=== PATIENT | female | born 1995 | race Caucasian/White ===

== ENCOUNTER 2024-03-16 20:58 | Emergency (ER) | payer SELFPAY ==
[2024-03-16 21:02] VITALS: BP 103/54; PULSE 110; RESP 20; TEMP 36.6; O2SAT 98; BMI 23.4
[2024-03-16 21:26] LABS: MANUAL DIFF FLAG NO
[2024-03-16 21:28] LABS: Basophils Percent Auto 0.2 % (0-2); Eosinophils Absolute Auto 0.3 X10*3/uL (0.0-0.4); Eosinophils Percent Auto 1.6 % (0-4); Hematocrit 34.7 % (37.0-47.0); Hemoglobin 11.7 g/dl (12.0-16.0); Imm Gran Abs Auto 0.16 X10*3/uL (0.00-0.03); Lymphocytes Absolute Auto 3.4 X10*3/uL (1.2-4.9); Lymphocytes Percent Auto 20.7 % (20-40); Mean Corpuscular HGB Conc 33.7 g/dl (31.0-35.0); Mean Corpuscular Hemoglobin 30.9 pg (27.0-33.0); Mean Corpuscular Volume 91.6 fL (80.0-98.0); Mean Platelet Volume 9.7 fL (9.4-12.3); Monocytes Absolute Auto 1.5 X10*3/uL (0.1-1.2); Monocytes Percent Auto 9.1 % (2-11); Neutrophils Absolute Auto 10.9 x10*3/uL (2.0-8.3); Neutrophils Percent Auto 67.4 % (45-73); Platelet Count 313 X10*3/uL (160-400); Red Blood Count 3.79 X10*6/uL (4.20-5.50); Red Cell Distribution Width 12.8 % (11.0-16.0); White Blood Count 16.2 X10*3/uL (4.8-10.8)
[2024-03-16 21:33] VITALS: BP 99/63; PULSE 112
[2024-03-16] MEDS: EPINEPHrine 1 MG/ML VIAL 0.3 MG IM (21:33)
[2024-03-16] MEDS: diphenhydrAMINE HCL 50 MG/ML VIAL IVPUSH (21:33)
[2024-03-16] MEDS: Famotidine/PF 20 MG/2 ML VIAL IVPUSH (21:33)
[2024-03-16] MEDS: methylPREDNISolone Sod Succ 125 MG/2 ML VIAL IVPUSH (21:33)
--- NOTE | 2024-03-16 21:36 | ED_ITS ---
HPI - Allergic Reaction General Chief complaint: Allergic Reaction Stated complaint: allergic reaction Time Seen by Provider: 03/16/24 21:14 History of Present Illness HPI narrative: Patient is a 29-year-old female ate Plantei for the 1st time. Noted faint shows swelling around the lips. There is no gross change in voice. Able to tolerate saliva. Patient came into the emergency department immediately. Not on blood pressure medication. No other changes in diet or environment. Patient from home. Related Data Previous Rx's ?Medication ?Instructions ?Recorded diphenhydramine HCl 25 mg capsule 25 mg PO Q8H 5 days #15 caps 03/17/24 (Benadryl) epinephrine 0.3 mg/0.3 mL 0.3 mg (0.3 mL) IM ONCE PRN 03/17/24 injection, auto-injector (EpiPen) extreme reaction #1 ea famotidine 20 mg tablet (Pepcid) 20 mg PO BID 5 days #10 tabs 03/17/24 prednisone 20 mg tablet 40 mg (2 x 20 mg) PO DAILY #10 tabs 03/17/24 Allergies Allergy/AdvReac Type Severity Reaction Status Date / Time No Known Allergies Allergy Verified 03/16/24 21:06 Review of Systems 2 Review of Systems: Positive swelling to the face Yes all other systems are reviewed and are negative PMFSH Past Medical History Attestation statement: The following information was validated with the patient. Social History Social History Smoked in Last 30 Days: No Use of substances other than those prescribed or required for medical reasons: No Advance Directives: No Advance Directives Information Provided: No Do you have a plan to hurt others: No Plan Physical Exam ED Vital Signs: Vital Signs - 24 hr 03/16/24 21:02 03/16/24 21:33 03/16/24 22:00 Temperature 98 F Pulse Rate 110 H 112 H 98 Respiratory Rate 20 18 Blood Pressure 103/54 L 99/63 115/59 L Pulse Oximetry 98 99 Oxygen Delivery Method Room Air Room Air 03/17/24 00:24 Temperature 98.6 F Pulse Rate 107 H Respiratory Rate 18 Blood Pressure 93/72 Pulse Oximetry 94 Oxygen Delivery Method Room Air BMI result Body Mass Index 23.4 Appearance: Alert. Oriented X3. No acute distress. Eyes: Pupils equal, round and reactive to light. ENT: Pharynx normal. Significant swelling to the upper and lower lip. There is no erythema posteriorly. Tongue is soft nonenlarged. Floor of the mouth is soft nontender Neck: Normal inspection. Neck supple. No lymph nodes noted. No crepitus CVS: Normal heart rate and rhythm. Pulses normal. Normal S1 and S2 Respiratory: No respiratory distress. Breath sounds normal. No Wheezing. No rales Abdomen: Soft and nontender. No rigidity. No distention. good BS x4 Skin: Skin warm and dry. Normal skin color. Normal skin turgor. Extremities: No lower extremity edema. Neurovascular intact to all extremities. No Lacerations. No Rash Neuro: Oriented X 3. No motor deficit. No sensory deficit. Moving all extermities. No slurred speech Medications Administered Discontinued Medications Generic Name Dose Route Start Last Admin Trade Name Freq PRN Reason Stop Dose Admin Diphenhydramine HCl 50 mg 03/16/24 21:26 03/16/24 21:33 Diphenhydramine Hcl 50 Mg/Ml Vial IVPUSH 03/16/24 21:27 50 mg ONCE ONE Administration Epinephrine 0.3 mg 03/16/24 21:26 03/16/24 21:33 Epinephrine 1 Mg/Ml Vial IM 03/16/24 21:27 0.3 mg STAT STA Administration Famotidine 20 mg 03/16/24 21:26 03/16/24 21:33 Famotidine/Pf 20 Mg/2 Ml Vial IVPUSH 03/16/24 21:27 20 mg ONCE ONE Administration Sodium Chloride 1,000 mls @ 999 mls/hr 03/16/24 21:30 03/16/24 21:39 Ns IV 03/16/24 22:30 999 mls/hr .Q1H1M JIM Administration Methylprednisolone Sodium Succinate 125 mg 03/16/24 21:26 03/16/24 21:33 Methylprednisolone Sod Succ 125 Mg/2 Ml Vial IVPUSH 03/16/24 21:27 125 mg ONCE ONE Administration Medical Decision Making Medical Decision Making MDM Narrative: Extensive swelling to the upper and lower lip. Not on JACQUELYN inhibitors. Given steroid, Benadryl, epinephrine, Pepcid monitor in the emergency department very closely. Never had any changes in voice. Never had any difficulty breathing. Patient's symptom improved over 2 hours. Swelling is down. Question if it is secondary to Plantei. Will discharge patient home. Close follow-up on an outpatient basis. Differential Diagnosis Differential Diagnoses: The differential diagnosis associated with the presentation includes Anaphylaxis, angioedema Admission/Observation Consideration of admission/observation: Escalation of care including admission/observation considered Lab Data MDM Lab Attestation statement: I reviewed the patient's lab results. 03/16/24 21:22 03/16/24 21:22 Labs: Lab Results 03/16/24 03/16/24 03/16/24 Range/Units 21:22 21:36 23:27 WBC 16.2 H (4.8-10.8) X10*3/uL RBC 3.79 L (4.20-5.50) X10*6/uL Hgb 11.7 L (12.0-16.0) g/dl Hct 34.7 L (37.0-47.0) % MCV 91.6 (80.0-98.0) fL MCH 30.9 (27.0-33.0) pg MCHC 33.7 (31.0-35.0) g/dl RDW 12.8 (11.0-16.0) % Plt Count 313 (160-400) X10*3/uL MPV 9.7 (9.4-12.3) fL Immature Gran % (Auto) 1.0 H (0.0-0.4) % Neut % (Auto) 67.4 (45-73) % Lymph % (Auto) 20.7 (20-40) % Brule % (Auto) 9.1 (2-11) % Eos % (Auto) 1.6 (0-4) % Baso % (Auto) 0.2 (0-2) % Lymph # (Auto) 3.4 (1.2-4.9) X10*3/uL Brule # (Auto) 1.5 H (0.1-1.2) X10*3/uL Eos # (Auto) 0.3 (0.0-0.4) X10*3/uL Baso # (Auto) 0.0 (0.0-0.2) X10*3/uL Abs Immat Gran (auto) 0.16 H (0.00-0.03) X10*3/uL Absolute Neuts (auto) 10.9 H (2.0-8.3) x10*3/uL Absolute Nucleated RBC 0.000 (0.0-0.012) X10*3/uL Nucleated RBC % (auto) 0.0 (0.0-0.2) /100WBC Sodium 136 (135-145) mmol/L Potassium 3.4 (3.3-5.1) mmol/L Chloride 104 (96-108) mmol/L Carbon Dioxide 23 (22-29) mmol/L Anion Gap 12 (12-20) BUN 20 H (9-16) mg/dL Creatinine 0.83 (0.5-1.4) mg/dL Estim Creat Clear Calc 94.4 Estimated GFR > 60 Random Glucose 158 H (60-115) mg/dL Calcium 9.2 (8.4-10.2) mg/dL Total Bilirubin 0.2 (0.0-1.0) mg/dL AST 38 H (5-31) U/L ALT 37 H (0-31) U/L Alkaline Phosphatase 117 (39-117) U/L Total Protein 7.8 (6.5-8.0) g/dL Albumin 3.6 (3.5-5.0) g/dL Beta HCG, Quant < 2 mIU/mL Urine Color Yellow Urine Appearance Clear Urine pH 6.5 (5.0-9.0) Ur Specific Dun[place] 1.015 (1.005-1.025) Urine Protein Negative (Neg-Trace) mg/dL Urine Glucose (UA) Negative (Negative) mg/dL Urine Ketones Negative (Negative) mg/dL Urine Blood Negative (Negative) Urine Nitrite Negative (Negative) Ur Leukocyte Esterase Negative (Negative) Urine RBC 0-2 (0-2) /HPF Urine WBC 0-5 (0-5) /HPF Ur Squamous Epith Cells 3-5 (0-2) /HPF Urine Bacteria None Seen (None Seen) Hyaline Casts 0-2 (0-2) /LPF Independent Historian Clinical information obtained from an independent historian. History obtained from or confirmed by: Spouse Critical Care Time Critical Care Time Critical Care Time: Yes Total Critical Care Time: 40 Attestation: I have personally provided 40 minutes of critical care time exclusive of time spent on separately billable procedures. ?Time includes review of lab data, radiology results, discussion with consultants, and monitoring for potential decompensation. ?Interventions were performed as documented above Discharge Plan Discharge Clinical Impression: Anaphylaxis Patient Disposition: Home, Self-Care Instructions: Food Allergy (ED), General Allergic Reaction (ED) Prescriptions: New prednisone 20 mg tablet 40 mg PO DAILY Qty: 10 0RF famotidine [Pepcid] 20 mg tablet 20 mg PO BID 5 Days Qty: 10 0RF diphenhydramine HCl [Benadryl] 25 mg capsule 25 mg PO Q8H 5 Days Qty: 15 0RF epinephrine [EpiPen] 0.3 mg/0.3 mL auto-injector 0.3 mg IM ONCE PRN (Reason: extreme reaction) Qty: 1 0RF Rx Instructions: for 2 doses Referrals: Hetal Alfonso MD [Primary Care Provider] - 03/19/24 Print Language: Sierra Leonean
[2024-03-16] MEDS: 0.9 % Sodium Chloride 1,000 ML 999 ML IV (21:39)
[2024-03-16 21:42] LABS: Alanine Aminotransferase 37 U/L (0-31); Albumin Level 3.6 g/dL (3.5-5.0); Alkaline Phosphatase 117 U/L (39-117); Anion Gap 12 (12-20); Aspartate Amino Transferase 38 U/L (5-31); Bilirubin Total 0.2 mg/dL (0.0-1.0); Blood Urea Nitrogen 20 mg/dL (9-16); Calcium 9.2 mg/dL (8.4-10.2); Carbon Dioxide 23 mmol/L (22-29); Chloride 104 mmol/L (96-108); Creatinine Clr Calc Pharmacy 94.4; Estimated Glomerular Filt Rate > 60; Glucose Random 158 mg/dL (60-115); Potassium 3.4 mmol/L (3.3-5.1); Sodium 136 mmol/L (135-145); Total Protein 7.8 g/dL (6.5-8.0)
[2024-03-16 22:00] VITALS: BP 115/59; PULSE 98; RESP 18; O2SAT 99
[2024-03-16 22:09] LABS: HCG Quantitative < 2 mIU/mL
--- NOTE | 2024-03-16 22:45 | PC.NURSE ---
Patient sleeping on stretcher at this time, breathing even unlabored.
[2024-03-16 23:33] LABS: Appearance Urine Clear; Color Urine Yellow; Glucose Urine UA Negative (Negative); Leukocyte Esterase Urine Negative (Negative); Nitrite Urine Negative (Negative); PH 6.5 (5.0-9.0); Specific Gravity - Urine 1.015 (1.005-1.025); Urine Blood Negative (Negative); Urine Ketones Negative (Negative); Urine Protein Negative (Neg-Trace)
[2024-03-16 23:36] LABS: Bacteria Urine None Seen (None Seen); Hyaline Casts Urine 0-2 /LPF (0-2); RBC Urine 0-2 /HPF (0-2); WBC Urine 0-5 /HPF (0-5)
[2024-03-17 00:24] VITALS: BP 93/72; PULSE 107; RESP 18; TEMP 37; O2SAT 94
[2024-03-17 01:09] VITALS: BP 104/74; PULSE 98; RESP 18; TEMP 37; O2SAT 94
== END 2024-03-17 01:09 | disposition home or self-care (01) ==
PROVIDERS: Emergency Provider Emergency Medicine Emergency Medical Services; PCP Family Medicine
DX: T78.09XA Anaphylactic reaction due to other food products, initial encounter (principal); T78.3XXA Angioneurotic edema, initial encounter; X58.XXXA Exposure to other specified factors, initial encounter
CPT/HCPCS: 36415; 80053; 81001; 84702; 85025; 96361; 96372; 96374; 96375; 99284; J0171; J1200; J2919

== ENCOUNTER 2024-06-16 | Outpatient (REF) | payer MEDICAID, SELFPAY ==
[2024-06-17 12:14] LABS: Bacterial Vaginosis PCR NEGATIVE (Negative); Candida Group PCR NOT DETECTED (Not Detect); Candida glab krusei PCR NOT DETECTED (Not Detect); Trichomonas vaginalis PCR NOT DETECTED (Not Detect)
== END 2024-06-16 00:01 | disposition home or self-care (01) ==
LOC: HO.CHCLNP
PROVIDERS: Visit Provider Family Medicine
DX: N30.00 Acute cystitis without hematuria (principal)
CPT/HCPCS: 0352U

== ENCOUNTER 2024-12-05 15:33 | Outpatient (REF) | payer MEDICAID, SELFPAY ==
--- OUTSIDE RECORDS SUMMARY | 2024-12-05 15:35 | XMS_ITS | Encounter Summary ---
Author Organization [email or web address] Address [address] [facility] 7 [place] [address] Care Team Providers Care Engine Cowling Installer Name Role Phone Hetal Alfonso MD Primary Care Provider [phone] Reason for Visit * Reason Onset Date Comments Nurse Triage 12/04/2024 Encounter Details Date Type Department Care Team ([facility] st Contact Info) Description 12/04/2024 Telephone [facility] MED [facility] PEDS [address] [place] [address] Hetal Alfonso MD [address] [place] [address] Nurse Triage Social History Tobacco Use Types Packs/Day Years Used Date Smoking Tobacco: Never Passive Smoke Exposure: Never Smokeless Tobacco: Never Alcohol Use Standard Drinks/Week Comments Never 0 (1 standard drink = 0.6 oz pur e alcohol) Depression Answer Date Recorded Patient Health Questionnaire-9 Score 13 10/02/2022 Housing Stability Answer Date Recorded What is your housing situation today? I have valentealyce lama 09/03/[address] you li ve. Do you have problems with any of the following? None of the above 09/03/2023 Food Insecurity Answer Date Recorded Within the past 12 months, y ou worried that your food would run out before you got money to buy more: Never True 09/03/2023 Within the past 12 months,th e food you bought just didn't last and you didn't have enough money to get more: Never True 03/2023 Transportation Answer Date Recorded In the past 12 months, has l ack of transportation kept you from medical appts, meetings, work or from getting things needed for daily living? No 09/03/2023 Utilities Answer Date Recorded In the past 12 months, has t he electric, gas, oil or water company threatened to shut off services in your home? No 09/03/2023 Depression Answer Date Recorded Patient Health Questionnaire-2 Score 3 10/02/2022 Comments No Sex and Gender Information Value Date Recorded Sex Assigned at Female 08/28/2022 10:40 AM EDT Legal Sex Female 10:40 AM EDT Gender Identity Female 08/28/2022 10:40 AM EDT Sexual Orientation Don't know 06/09/2024 11 :29 AM EDT Sexual Orientation Straight 06/09/2024 11 :29 AM EDT documented as of this encounter Miscellaneous Notes * Telephone Encounter - Janneth Allen, [facility] - 12/04/2024 1:56 PM EST Triage call returned with BLS # [id number] [place]. Patient reports pain in low back near buttocks. Now increased over the last several months wakes with pain daily. Had been taking ibuprofen with no noted relief. Also taking Tylenol and Topically Diclofanac. No noted improvement. Patient reports some burring with urination and vaginal itching and that she has had testing done previously following the of her child 2 years ago with no noted diagnosis. Patient is frustrated and is seeking resoloution of strong urine odor and itching. Disposition reviewed and patient in agreement with plan. ASK/[facility] tomorrow at 220pm Multiple (2) protocols were used on this call. Disposition for Call: See in Office or Video Visit Today Protocol Used: Urinary Symptoms (Adult) Protocol-Based Disposition: See in Office or Video Visit Today Video visit not offered Positive Triage Question: * Bad or foul-smelling urine * All higher-acuity triage questions were negative Care Advice Discussed: * Reasons To Call Back - Fever occurs - Pain or burning with urination - Unable to urinate and bladder feels full - You become worse Protocol Used: Back Pain (Adult) Protocol-Based Disposition: See in Office or Video Visit within 2 Weeks Video visit not offered Positive Triage Question: * Back pain is a chronic symptom (recurrent or ongoing AND lasting > 4 weeks) * All higher-acuity triage questions were negative Care Advice Discussed: * Pain Medicines * Reasons To Call Back - Loss of control of your bladder or bowel - Severe pain not better after taking pain medicines - Pain begins to shoot into the leg * Telephone Encounter - Chago Ye - 12/04/2024 1:24 PM EST Patient is requesting appt to be seen for back lower left pain. Patient unable to state time pain started it has been continuous for a while. No other pain or symptoms at the moment. documented in this encounter Plan of Treatment Not on file documented as of this encounter Visit Diagnoses Not on filedocumented in this encounter Additional Health Concerns Assessment Noted Time PHQ-9 Depression Total Score: 13 022 9:51 AM EST documented as of this encounter Care Teams Engine Cowling Installer Relationship Specialty Start Date End Date Hetal Alfonso MD [address] [place] [address] PCP - General Family Medicine 01/31/22 documented as of this encounter
--- OUTSIDE RECORDS SUMMARY | 2024-12-05 15:35 | XMS_ITS | Clinical Summary ---
Author Organization [employer] Address [address] [facility] 7t [place] [address] Care Team Providers Care Industrial Health Engineer Name Role Phone Hetal Alfonso MD Primary Care Provider [phone] Allergies No known active allergies Medications Diclofenac Sodium 1 % gel Apply 2 g topically every 6 (six) hours. 01/28/20 22 Active buPROPion XL (Wellbutrin XL) 150 MG 24 hr tabletIndicati ons:Chronic fatigue Take 1 tablet (150 mg) by mouth in the morning. Do not crush, chew, or split. 30 tablet 1 10/02/20 22 Active acetaminophen (Tylenol) 325 MG tablet Take 650 mg by mouth every 4 (four) hours if needed. 06/19/20 23 Active Docusate Sodium (DSS) 100 MG capsule Take 100 mg by mouth 2 times daily. 06/19/20 23 Active polyethylene glycol, PEG, 3350 (MiraLax) 17 GM/SCOOP powder Take 17 g by mouth 1 (one) time each day. 06/19/20 23 Active simethicone (Mylicon) 80 MG chewable tablet Chew 80 mg if needed in the morning, at noon, and at bedtime. For gas 06/19/20 23 Active EPINEPHrine (Epipen) 0.3 MG/0.3ML injection syringe 0.3 MG (0.3 ML) INTRAMUSCULARLY ONCE NEEDED FOR EXTREME REACTION FOR 2 DOSES 03/17/20 24 Active triamcinolone (Kenalog) 0.5 % ointment Apply topically 2 times daily. 90 g 1 06/16/20 24 Active clotrimazole (Lotrimin AF) 1 % creamIndicatio ns:Dermatophyt osis Apply topically 2 times daily. 90 g 06/16/20 24 Active meloxicam (Mobic) 15 MG tabletIndicati ons:Chronic bilateral low back pain without sciatica Take 1 tablet (15 mg) by mouth Once per day. 30 tablet 11 12/05/19 25 026 Active Active Problems Problem Noted Date Diagnosed Date Anaphylaxis 06/16/2024 Assessment & Plan (06/16/2024 3:25 PM EDT): Referral to Interventional Radiology Rn for further evaluation of Sx. Acute cystitis without hematuria 06/16/2024 Assessment & Plan (06/16/2024 3:23 PM EDT): Ordering urinalysis and BV self swab for further evaluation. Follow up for Pelvic Exam. Non-Occitan speaking patient 02/21/2024 History of varicella 01/21/2024 History of section complicating pregnan cy 01/21/2024 History of section 01/21/2024 Gestational diabetes mellitus (GDM) 01/21/2024 Environmental and seasonal allergies 01/21/2024 Constipation 01/21/2024 Class 1 obesity 01/21/2024 Anemia 01/21/2024 Chronic left-sided low back pain without sciatic a 01/21/2024 Assessment & Plan (01/21/2024 10:11 AM EDT): -acute on chronic pain -full work up completed in past with referral to pain specialist -advised heat application and daily stretching/strengthening exercises (hand out provided) -prescription for ibuprofen sent to pharmacy -red flags to seek emergency care reviewed -follow-up 2 months Chronic bilateral low back pain without sciatica 10/02/2022 Assessment & Plan (10/02/2022 10:06 AM EST): Chronic issue since she was a child in [place], reviewed X rays done in January 2022, none contributory. Unable to send to local PT/pain medicine. Reports NSAIDs/APAP not helpful. Will send to pain specialist in [facility], reports she has transportation. Chronic fatigue 10/02/2022 Assessment & Plan (01/21/2024 10:00 AM EDT): -patient request refill of vitamins -advised daily walks for fresh air and sun exposure -follow-up as needed Assessment & Plan (10/02/2022 10:07 AM EST): PHQ-13, denies depressed mood but has symptoms, open to trial of wellbutrin, will start and f/up in [address] on recall schedule Rash 10/02/2022 Assessment & Plan (06/16/2024 3:24 PM EDT): Referral to Dermatology for further evaluation. Prescribing Triamcinolone for elbow rash. Relevant Medications Triamcinolone (kenalog) 0.5% ointment Assessment & Plan (10/02/2022 10:07 AM EST): Likely eczema, at this point will start with moderate dose steroid. Recommended to avoid washing dishes w/o gloves. Encounters Date Type Department Care Team Description 12/05/2024 2:20 PM EST Office Visit [facility] MED & PEDS [address] [place], [place] [id number] Trung Jackson MD Burning with urination (Primary Dx); Chronic bilateral low back pain without sciatica 12/05/2024 Telephone [facility] [address] [place] [phone] Trung Jackson MD 12/05/2024 Travel 12/04/2024 Telephone [facility] [address] [place] [address] Hetal Alfonso MD Nurse Triage from Last 3 Months Immunizations Name Administration Dates Next Due Hep B, adult 09/15/2022,03/28/2022,02/28/2022 Tdap 04/04/2023 Social History Tobacco Use Types Packs/Day Years Used Date Smoking Tobacco: Never Passive Smoke Exposure: Never Smokeless Tobacco: Never Tobacco Cessation:Counseling Given: Not Answered Alcohol Use Standard Drinks/Week Comments Never 0 (1 standard drink = 0.6 oz pur e alcohol) Depression Answer Date Recorded Patient Health Questionnaire-9 Score 13 10/02/2022 Housing Stability Answer Date Recorded What is your housing situation today? I have valente lama 09/03/[address] you [...] Orientation Straight 06/09/2024 11 :29 AM EDT Last Filed Vital Signs Vital Sign Reading Time Taken Comments Blood Pressure 103/61 12/05/2024 2:28 PM EST Pulse 68 12/05/2024 2:28 PM EST Temperature 36.8 ??C (98.3 ??F) 12/05/2024 2:28 PM ES T Respiratory Rate 16 12/05/2024 2:28 PM EST Oxygen Saturation 95% 12/05/2024 2:28 PM EST Inhaled Oxygen Concentration - - Weight 68.5 kg (151 lb) 12/05/2024 2:28 PM EST Height 165.1 cm (5' 5 ) 12/05/2024 2:28 PM EST Body Mass Index 25.13 12/05/2024 2:28 PM EST Plan of Treatment Health Maintenance Due Date Last Done Comments HIV Screening 1996 Alcohol/Substance Use Screening 2008 Family Planning (PISQ) 01/03/2011 Hepatitis C Screening 01/03/2014 Pap Smear 01/03/2017 Depression Monitoring (PHQ-9) 04/02/2023, 10/02/2022 Depression Screening 10/02/2023 10/02/2022, 10/02/2022 Dental Oral Exam 04/06/2024 10/05/2023 SDOH Screening 06/20/2024 06/20/2023 COVID-19 Vaccine (3 - 2023-2 5 season) 2024 07/03/2021, 06/05/2021 Influenza Vaccine (#1) 2024 Dental Prophylaxis 08/22/2024 02/20/2024 Dental X-Ray: Bitewings 10/06/2024 10/05/2023 Tobacco Screening 12/05/2025 12/05/2024 Dental X-Ray: Full Mouth 10/06/2026 10/05/2023 DTaP/Tdap/Td Vaccines (2 - T d or Tdap) 04/04/2033 04/04/2023 Zoster Vaccines (1 of 2) 01/03/2046 RSV Patients and Patients Aged 60 years or older (1 - 1-dose 75+ series) 01/03/2071 Hepatitis B Vaccines Completed 09/15/2022, 03/28/2022, 02/28/2022 HIB Vaccines Aged Out No longer eligi ble based on patient's age to complete this topic HPV Vaccines Aged Out No longer eligi ble based on patient's age to complete this topic Hepatitis A Vaccines Aged Out No long er eligible based on patient's age to complete this topic IPV Vaccines Aged Out No longer eligi ble based on patient's age to complete this topic Meningococcal Vaccine Aged Out No ronnie jana eligible based on patient's age to complete this topic Pneumococcal Vaccine: Pediatrics (0 to 5 Years) and At-Risk Patients (6 to 49) Years) Aged Out No longer eligible b ased on patient's age to complete this topic RSV under 20 months Aged Out No longe r eligible based on patient's age to complete this topic Rotavirus Vaccines Aged Out No longer eligible based on patient's age to complete this topic Procedures Procedure Name Priority Date/Time Associated Diagnosis Comments PROPHYLAXIS - ADULT Routine 02/20/2024 1 0:00 AM EDT Dental plaque DIAGNOSTIC - DIAGNOSTIC IMAGING - INTRAORAL - COMPREHENSIVE SERIES OF RADIOGRAPHIC IMAGES Routine 10/05/2023 3:00 PM EST Encounter for dental examination Dental caries COMPREHENSIVE ORAL EVALUATION - NEW OR ESTABLISHED PATIENT Routine 10/05/2023 3:00 PM EST Encounter for dental examination Dental caries from Last 3 Months or Most Recently Relevant to Health Maintenance Insurance [address] [place] [id number] LIMITED HSN FULL DENT[place] ST[place] ADULT Care Teams Industrial Health Engineer Relationship Specialty Start Date End Date Hetal Alfonso MD [address] [place] [id number] PCP - General Family Medicine 01/31/22
--- OUTSIDE RECORDS SUMMARY | 2024-12-05 15:35 | XMS_ITS | Encounter Summary ---
Author Organization [employer] Address [address] [facility] [address] [place] [address] Care Team Providers Care Neurology Manager Name Role Phone Hetal Alfonso MD Primary Care Provider Encounter Details Date Type Department Care Team (Latest Contact Info) Description 12/05/2024 Travel Social History Tobacco Use Types Packs/Day Years [...] AM EDT documented as of this encounter Plan of Treatment Not on file documented as of this encounter Visit Diagnoses Not on filedocumented in this encounter Additional Health Concerns Assessment Noted Time PHQ-9 Depression Total Score: 13 022 9:51 AM EST documented as of this encounter Care Teams Neurology Manager Relationship Specialty Start Date End Date Hetal Alfonso MD [address] [place] [address] PCP - General Family Medicine 01/31/22 documented as of this encounter
--- OUTSIDE RECORDS SUMMARY | 2024-12-05 15:35 | XMS_ITS | Encounter Summary ---
Author Organization [employer] Address [address] [facility] 7 [place] [address] Care Team Providers Care Billing Spec Name Role Phone Hetal Alfonso MD Primary Care Provider [phone] Encounter Details Date Type Department Care Team (Late st Contact Info) Description 12/05/2024 Telephone [employer] [facility] [address] [place] [address] Trung Jackson MD [address] [place] [address] Social History Tobacco Use Types Packs/Day Years [...] encounter Miscellaneous Notes * Telephone Encounter - Gabbi Montana - 12/05/2024 3:23 PM EST Good afternoon Dr. Jackson, [employer] doesn't cover PT for patient. documented in this encounter Plan of Treatment Not on file documented as of this encounter Visit Diagnoses Not on filedocumented in this encounter Additional Health Concerns Assessment Noted Time PHQ-9 Depression Total Score: 13 022 9:51 AM EST documented as of this encounter Care Teams Billing Spec Relationship Specialty Start Date End Date Hetal Alfonso MD [address] [place] [address] PCP - General Family Medicine 01/31/22 documented as of this encounter
--- OUTSIDE RECORDS SUMMARY | 2024-12-05 15:35 | XMS_ITS | Encounter Summary ---
Author Organization [employer] Address [address] [place] [address] [place] [address] Care Team Providers Care Ceo And President Name Role Phone Hetal Alfonso MD Primary Care Provider [phone] Reason for Referral * Consultation (Routine) - Closed Specialty Diagnoses / Procedures Referred By Maxwell daniels Referred To Contact Physical Therapy Diagnoses Chronic bilateral low back pain without sciatica Trung Jackson MD [address] [place] [address] Phone: tel: fax: Referral ID Status Reason Start Date Expiration Date V isits Requested Visits Authorized [id number] Closed Specialty Services Required 12/05/2024 12/05/2025 1 1 Reason for Visit * Reason Comments Back Pain Encounter Details Date Type Department Care Team ([facility] st Contact Info) Description 12/05/2024 2:20 PM EST Office Visit [facility] [address] [place] [address] Trung Jackson MD [address] [place] [address] Burning with urination (Primary Dx); Chronic bilateral low back pain without sciatica Social History Tobacco Use Types Packs/Day Years Used Date Smoking Tobacco: Never Passive Smoke Exposure: Never Smokeless Tobacco: Never Alcohol Use Standard Drinks/Week Comments Never 0 (1 standard drink = 0.6 oz pur e alcohol) Depression Answer Date Recorded Patient Health Questionnaire-9 Score 13 10/02/2022 Housing Stability Answer Date Recorded What is your housing situation today? I have valente laam 09/03/[address] you li [...] AM EDT documented as of this encounter Last Filed Vital Signs Vital Sign Reading [...] Mass Index 25.13 12/05/2024 2:28 PM EST documented in this encounter Progress Notes * Trung Jackson MD - 12/05/2024 2:20 PM EST Subjective Patient ID: george Neves is a 29 y.o. female who presents for Back Pain. Back Pain This is a chronic problem. The current episode started more than 1 year ago. The pain is present inthe lumbar spine. The pain is at a severity of 6/10. Pertinent negatives include no dysuria. Here for c/o back pain. Located on the left low back. Worse when lying down on the left side. The pain started many years ago, getting worse in the last 4 years. Has tried Ibuprofen, diclofenacwhich was initially helping but not so much anymore. Patient is also complaining of burning sensation with urination since the month of May 2024. Hada urinalysis which was normal. No reported vaginal discharge or redness of the genital area. No newsexual partner. 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 Patient Active Problem List Diagnosis Chronic bilateral low back pain without sciatica Chronic fatigue Rash History of varicella History of section complicating History of section Gestational diabetes mellitus (GDM) Environmental and seasonal allergies Constipation Class 1 obesity Anemia Chronic left-sided low back pain without sciatica Non-Citizen Of [place] speaking patient Anaphylaxis Acute cystitis without hematuria Current Outpatient Medications on File Prior to Visit Medication Sig Dispense Refill acetaminophen (Tylenol) 325 MG tablet Take 650 mg by mouth every 4 (four) hours if needed. buPROPion XL (Wellbutrin XL) 150 MG 24 hr tablet Take 1 tablet (150 mg) by mouth in the morning. Donot crush, chew, or split. 30 tablet 1 clotrimazole (Lotrimin AF) 1 % cream Apply topically 2 times daily. 90 g 0 Diclofenac Sodium 1 % gel Apply 2 g topically every 6 (six) hours. Docusate Sodium (DSS) 100 MG capsule Take 100 mg by mouth 2 times daily. EPINEPHrine (Epipen) 0.3 MG/0.3ML injection syringe 0.3 MG (0.3 ML) INTRAMUSCULARLY ONCE NEEDED FOR EXTREME REACTION FOR 2 DOSES polyethylene glycol, PEG, 3350 (MiraLax) 17 GM/SCOOP powder Take 17 g by mouth 1 (one) time each day. simethicone (Mylicon) 80 MG chewable tablet Chew 80 mg if needed in the morning, at noon, and at bedtime. For gas triamcinolone (Kenalog) 0.5 % ointment Apply topically 2 times daily. 90 g 1 No current facility-administered medications on file prior to visit. No Known Allergies Review of Systems Constitutional: Negative for appetite change, chills and diaphoresis. Eyes: Negative for pain and redness. Respiratory: Negative for choking and chest tightness. Genitourinary: Negative for decreased urine volume, dysuria, frequency, genital sores, vaginal bleeding and vaginal pain. Musculoskeletal: Positive for back pain. Objective BP 103/61 (BP Location: Left arm, Patient Position: Sitting, BP Cuff Size: Adult) Pulse 68 Temp98.3 ??F (36.8 ??C) (Oral) Resp 16 Ht 5' 5 (1.651 m) Wt 151 lb (68.5 kg) SpO2 95% BMI 25.13 kg/m?? Physical Exam Constitutional: General: She is not in acute distress. Appearance: Normal appearance. She is not ill-appearing, toxic-appearing or diaphoretic. Pulmonary: Effort: Pulmonary effort is normal. Abdominal: General: Abdomen is flat. There is no distension. Palpations: Abdomen is soft. There is no mass. Tenderness: There is no abdominal tenderness. There is no guarding or rebound. Hernia: No hernia is present. Musculoskeletal: General: Normal range of motion. Neurological: Mental Status: She is alert. Assessment/Plan Diagnoses and all orders for this visit: Burning with urination Comments: Push fluids Urinalysis with culture. Patient will be contacted with results for further management. Orders: - Urinalysis, Complete, with Reflex to Culture; Future Chronic bilateral low back pain without sciatica Comments: Unclear etiology Gentle stretching exercises Acupuncture recommended. Start physical therapy. Start meloxicam 15 mg once a day. Orders: - Referral to Physical Therapy; Future - meloxicam (Mobic) 15 MG tablet; Take 1 tablet (15 mg) by mouth Once per day. documented in this encounter Plan of Treatment Scheduled Orders Name Type Priority Associated Diagnoses Orde r Schedule Urinalysis, Complete, with Reflex to Culture Lab Routine Burning with urination Expected: 12/05/2024 (Approximate), Expires: 12/05/2025 Scheduled Referrals Name Type Priority Associated Diagnoses Orde r Schedule Referral to Physical Therapy Outpatient Referral Routine Chronic bilateral low back pain without sciatica Expected: 12/05/2024 (Approximate), Expires: 12/05/2025 documented as of this encounter Visit Diagnoses Diagnosis Burning with urination- Primary Dysuria Chronic bilateral low back pain without sciatica documented in this encounter Additional Health Concerns Assessment Noted Time PHQ-9 Depression Total Score: 13 022 9:51 AM EST documented as of this encounter Care Teams Ceo And President Relationship Specialty Start Date End Date Hetal Alfonso MD [address] [place] [phone] PCP - General Family Medicine 01/31/22 documented as of this encounter
[2024-12-05 17:57] LABS: Appearance Urine Clear; Color Urine Yellow; Glucose Urine UA Negative (Negative); Leukocyte Esterase Urine Negative (Negative); Nitrite Urine Negative (Negative); PH 5.5 (5.0-9.0); Specific Gravity - Urine 1.025 (1.005-1.025); Urine Blood Negative (Negative); Urine Ketones Negative (Negative); Urine Protein Negative (Neg-Trace)
== END 2024-12-05 15:34 | disposition home or self-care (01) ==
LOC: HO.CHCLNP 15:33
PROVIDERS: Visit Provider Internal Medicine
DX: R30.0 Dysuria (principal)
CPT/HCPCS: 81003

== ENCOUNTER 2025-02-11 10:30 | Outpatient (REF) | payer MEDICAID, SELFPAY ==
--- OUTSIDE RECORDS SUMMARY | 2025-02-11 12:34 | XMS_ITS | Clinical Summary ---
Author Organization [email or web address] Address [address] [place] [address] Care Team Providers Care Histology Assistant Name Role Phone Hetal Alfonso MD Primary Care Provider [phone] Allergies No known active allergies Medications Diclofenac [...] Plan (06/16/2024 3:25 PM EDT): Referral to Drywall Finisher Foreman for further evaluation of Sx. Acute cystitis without hematuria 06/16/2024 Assessment & Plan (06/16/2024 3:23 PM EDT): Ordering urinalysis and BV self swab for further evaluation. Follow up for Pelvic Exam. Non-Beninese speaking patient 02/21/2024 History of varicella 01/21/2024 [...] issue since she was a child in [place], reviewed X rays done in January 2022, none contributory. Unable to send to local PT/pain medicine. Reports NSAIDs/APAP not helpful. Will send to pain specialist in [facility], reports she has transportation. Chronic fatigue 10/02/2022 [...] Description 12/05/2024 2:20 PM EST Office Visit [facility] MED & P[facility] [address] [place], [place] [phone] Trung Jackson MD Burning with urination (Primary Dx); Chronic bilateral low back pain without sciatica 12/05/2024 Telephone [facility] [address] [place] [phone] Trung Jackson MD 12/05/2024 Travel 12/04/2024 Telephone [facility] [address] [place] [address] Hetal Alfonso MD Nurse Triage [...] Screening 01/03/2014 Pap Smear 01/03/2017 Depression Monitoring 04/02/2023 10/02/2022 , 10/02/2022 Depression Screening 10/02/2023 10/02/2022, 10/02/2022 Dental [...] Procedure Name Priority Date/Time Associated Diagnosis Comments URINALYSIS WITH REFLEX MICROSCOPIC Routine 12/05/2024 3:00 PM EST PROPHYLAXIS - ADULT Routine 02/20/2024 1 0:00 AM EDT Dental plaque INTRAORAL - COMPLETE SERIES OF RADIOGRAPHIC IMAGES Routine 10/05/2023 3:00 PM EST Encounter for dental examination Dental caries COMPREHENSIVE ORAL EVALUATION - NEW OR ESTABLISHED PATIENT Routine 10/05/2023 3:00 PM EST Encounter for dental examination Dental caries from Last 3 Months or Most Recently Relevant to Health Maintenance Results * Urinalysis w/reflex microscopic (12/05/2024 3:00 PM EST) Color Urine Yellow [facility] Appearance Urine Clear [facility] PH 5.5 5.0 - 9.0 [facility] Glucose Urine UA Negative Negative mg/dL [facility] Urine Blood Negative Negative [facility] Specific [place] - Urine 1.025 1.005 - 1.025 [facility] Urine Protein Negative Neg-Trace mg/dL [facility] Urine Ketones Negative Negative mg/dL [facility] Nitrite Urine Negative Negative [facility] Leukocyte Esterase Urine Negative Negative [facility] 12/05/2024 3:00 PM EST 12/05/2024 5:52 PM EST Narrative [facility] - 12/05/2024 5:58 PM EST [id number], Clean Catch us Trung Jackson MD LAB URINE ORDERABLES Final Result [facility] [address] [place] [address] [phone] from Last 3 Months Insurance [employer] [address] MEDICAID STAND ADULT Care Teams Histology Assistant Relationship Specialty Start Date End Date Hetal Alfonso MD [address] [place] [phone] PCP - General Family Medicine 01/31/22
[2025-02-11 14:47] LABS: Appearance Urine Cloudy; Color Urine Yellow; Glucose Urine UA Negative (Negative); Leukocyte Esterase Urine Negative (Negative); Nitrite Urine Negative (Negative); PH 6.5 (5.0-9.0); Specific Gravity - Urine 1.025 (1.005-1.025); Urine Blood Negative (Negative); Urine Ketones Negative (Negative); Urine Protein Negative (Neg-Trace)
[2025-02-11 14:50] LABS: Hematocrit 36.9 % (37.0-47.0); Hemoglobin 12.6 g/dl (12.0-16.0); Mean Corpuscular HGB Conc 34.1 g/dl (31.0-35.0); Mean Corpuscular Hemoglobin 31.2 pg (27.0-33.0); Mean Corpuscular Volume 91.3 fL (80.0-98.0); Mean Platelet Volume 10.3 fL (9.4-12.3); Platelet Count 369 X10*3/uL (160-400); Red Blood Count 4.04 X10*6/uL (4.20-5.50); Red Cell Distribution Width 12.2 % (11.0-16.0); White Blood Count 8.9 X10*3/uL (4.8-10.8)
[2025-02-11 15:15] LABS: Estimated Average Glucose 108 mg/dL; Hemoglobin A1C 117.5651 umol/L; Hemoglobin A1c % 5.4 % (<6.0); Total Hemoglobin (HGBA1C) 3282.6017 umol/L
[2025-02-11 15:37] LABS: Vitamin B12 561 pg/mL (200-900)
[2025-02-11 16:32] LABS: Alanine Aminotransferase 31 U/L (0-31); Albumin Level 4.2 g/dL (3.5-5.0); Alkaline Phosphatase 67 U/L (39-117); Anion Gap 11 (12-20); Aspartate Amino Transferase 25 U/L (5-31); Bilirubin Total 0.4 mg/dL (0.0-1.0); Blood Urea Nitrogen 18 mg/dL (9-16); Calcium 9.5 mg/dL (8.4-10.2); Carbon Dioxide 25 mmol/L (22-29); Chloride 107 mmol/L (96-108); Cholesterol 201 mg/dL (<200); Estimated Glomerular Filt Rate > 60; Glucose Random 85 mg/dL (60-115); HDL Cholesterol 45 mg/dL (>40); Iron 86 mcg/dL (30-160); LDL Cholesterol Calculated 124 mg/dL (<100); Percent Iron Saturation 31 % (15-50); Potassium 3.9 mmol/L (3.3-5.1); Sodium 139 mmol/L (135-145); Total Iron Binding Capacity 274 mcg/dL (228-428); Total Protein 7.5 g/dL (6.5-8.0); Triglycerides 162 mg/dL (<150); Unsaturated Iron Binding 188 ug/dL
[2025-02-11 16:53] LABS: Ferritin 62 ng/mL (10-122); Thyroid Stimulating Hormone 2.62 uIU/mL (0.32-4.0); Vitamin D 25-OH Total 23.7 ng/mL (>30)
[2025-02-12 05:31] LABS: Lutenizing Hormone 7.9 mIU/mL
[2025-02-20 20:02] LABS: Estrogen 234 pg/mL
== END 2025-02-11 10:31 | disposition home or self-care (01) ==
LOC: HO.CHCLDS 10:30
PROVIDERS: PCP Family Medicine; Visit Provider Pediatrics
DX: Z00.00 Encounter for general adult medical examination without abnormal findings (principal); Z13.29 Encounter for screening for other suspected endocrine disorder; Z13.0 Encounter for screening for diseases of the blood and blood-forming organs and certain disorders involving the immune mechanism; Z13.21 Encounter for screening for nutritional disorder; Z13.1 Encounter for screening for diabetes mellitus; Z13.6 Encounter for screening for cardiovascular disorders; Z13.9 Encounter for screening, unspecified
CPT/HCPCS: 36415; 80053; 80061; 81003; 82306; 82607; 82672; 82728; 83001; 83002; 83036; 83540; 84144; 84443; 85027